=== PATIENT | female | born 1965 | race Caucasian/White ===

== ENCOUNTER → 2021-06-25 | Outpatient (CLI) | payer OTHER | LOC: M.RAD 09:24 | PROVIDERS: ATTEND Family Medicine | DX: Z12.31 Encounter for screening mammogram for malignant neoplasm of breast (principal); Z78.0 Asymptomatic menopausal state ==

== ENCOUNTER → 2021-07-21 | Outpatient (CLI) | payer OTHER | LOC: M.ULTRA 07-01 15:12 | PROVIDERS: ATTEND Internal Medicine Gastroenterology | DX: R10.13 Epigastric pain (principal); R11.0 Nausea; R68.81 Early satiety; R10.9 Unspecified abdominal pain ==